=== PATIENT | female | born 1935 | race Caucasian/White ===

== ENCOUNTER → 2022-01-14 08:51 | Outpatient (CLI) | payer MEDICARE, OTHER, SELFPAY | PROVIDERS: Visit Provider Physician Assistant | DX: N39.0 Urinary tract infection, site not specified (principal); N94.9 Unspecified condition associated with female genital organs and menstrual cycle | CPT/HCPCS: 87086; 87210 ==

== ENCOUNTER → 2022-07-21 14:26 | Outpatient (CLI) | payer MEDICARE, OTHER, SELFPAY ==
--- NOTE | 2022-07-21 14:28 | DI.RAD.S_ITS ---
PROCEDURE: XR WRIST RT MIN 3V INDICATIONS: right wrist pain 6 wk suspect tenosynovitis TECHNIQUE: 4 views of the wrist were acquired. COMPARISON: None. FINDINGS: Bones: No fractures or dislocations. No suspicious bony lesions. Scaphoid view: Negative Soft tissues: No suspicious soft tissue calcifications. IMPRESSION: No acute fracture. No osseous lesion. If symptoms and/or clinical suspicion for pathology persist, further assessment with repeat, or advanced imaging (e.g., CT, MRI, or bone scan) may be helpful for further assessment. Dictated by: Eliot Velasquez M.D. on 07/21/2022 at 14:53 Approved by: Eliot Velasquez M.D. on 07/21/2022 at 14:53
== END ==
PROVIDERS: PCP Family Medicine; Referring Provider Student in an Organized Health Care Education/Training Program; Visit Provider Student in an Organized Health Care Education/Training Program
DX: M25.531 Pain in right wrist (principal); M65.4 Radial styloid tenosynovitis [de Quervain]
CPT/HCPCS: 73110

== ENCOUNTER → 2023-01-27 12:31 | Outpatient (CLI) | payer MEDICARE, OTHER, SELFPAY ==
[2023-01-27 14:05] LABS: Hematocrit 39.4 % (36-46); Hemoglobin 13.3 g/dL (12.0-16.0); Mean Corpuscular HGB Conc 33.7 % (30-36); Mean Corpuscular Hemoglobin 28.3 PG (26-34); Platelet Count 153 X10^3/uL (150-400); Red Blood Cell Count 4.68 X10^6/uL (4.0-5.2); Red Cell Distribution Width 14.6 % (11.6-14.8); White Blood Cell Count 6.9 X10^3/uL (4.5-11.0)
[2023-01-27 15:35] LABS: Alanine Aminotransferase 19 IU/L (<35); Albumin 4.4 g/dL (3.5-5.0); Albumin Globulin Ratio 1.2 (1.0-2.8); Alkaline Phosphatase 95 U/L (38-126); Aspartate Aminotransferase 30 IU/L (14-36); BUN Creatinine Ratio 17.9 (6-22); Bilirubin Total 0.6 mg/dL (0.2-1.3); Blood Urea Nitrogen 22 mg/dL (7-17); Calcium 9.2 mg/dL (8.4-10.2); Carbon Dioxide 30 mmol/L (22-32); Chloride 101 mmol/L (98-107); Cholesterol 272 mg/dL (140-199); Estimated Glomerular Filt Rate 43 mL/min (>60); Globulin 3.6 g/dL (1.7-4.1); Glucose 119 mg/dL (80-110); HDL Cholesterol 43 mg/dL (40-60); HEMOLYSIS < 15 (0-50); LDL Cholesterol Calculated 173 mg/dL (<100); Potassium 4.3 mmol/L (3.4-5.1); Sodium 139 mmol/L (137-145); Triglycerides 281 mg/dL (35-150)
[2023-01-27 18:14] LABS: TSH w/ Reflex to FT4 2.46 uIU/mL (0.47-4.68)
== END ==
PROVIDERS: PCP Internal Medicine; Referring Provider Internal Medicine; Visit Provider Internal Medicine
DX: E78.2 Mixed hyperlipidemia (principal); I10 Essential (primary) hypertension; M35.00 Sjogren syndrome, unspecified
CPT/HCPCS: 36415; 80053; 80061; 84443; 85027

== ENCOUNTER → 2023-09-10 10:13 | Outpatient (CLI) | payer MEDICARE, OTHER, SELFPAY ==
--- NOTE | 2023-09-10 10:17 | DI.RAD.S_ITS ---
PROCEDURE: XR FOOT LT MIN 3V INDICATIONS: PLANTER FASCITIS TECHNIQUE: 3 views of the foot were acquired. COMPARISON: None. FINDINGS: Bones: ORIF and syndesmosis is noted. No hardware fracture. Some radiolucency is noted along the syndesmotic screw which can be associated with hardware loosening. Calcaneal pitch is 18.9?. There is diffuse interphalangeal joint space narrowing. No acute fracture or dislocation. No calcaneal spurring. Soft tissues: No tibiotalar joint effusion. Achilles tendon appears normal. IMPRESSION: 1. Radiographic findings suspicious for loosening of the syndesmotic screw. 2. Normal calcaneal pitch. No calcaneal spurring. 3. Osteoarthritis of the forefoot. Dictated by: Stacy Mora M.D. on 09/21/2023 at 9:25 Approved by: Stacy Mora M.D. on 09/21/2023 at 9:27
== END ==
LOC: RAD 10:15
PROVIDERS: PCP Internal Medicine; Referring Provider Podiatrist Foot & Ankle Surgery; Visit Provider Podiatrist Foot & Ankle Surgery
DX: M72.2 Plantar fascial fibromatosis (principal); M19.072 Primary osteoarthritis, left ankle and foot
CPT/HCPCS: 73630

== ENCOUNTER → 2023-10-14 11:21 | Outpatient (CLI) | payer MEDICARE, OTHER, SELFPAY ==
--- NOTE | 2023-10-14 11:22 | DI.MRI.S_ITS ---
PROCEDURE: MR ANKLE LT WO CON INDICATIONS: Pain in left foot TECHNIQUE: Noncontrast sagittal T1 spin echo and T2 fast spin echo with fat saturation, axial proton density fast spin echo and T2 fast spin echo with fat saturation, coronal T1 spin echo and T2 fast spin echo with fat saturation through the ankle/hindfoot. COMPARISON: [facility], CR, XR FOOT LT MIN 3V, 09/10/2023, 10:19. FINDINGS: Image quality: Excellent Tendons: The flexor tendon is unremarkable. Somewhat limited evaluation of the peroneal tendon given adjacent metal artifact, otherwise unremarkable. The extensor, in the distal Achilles tendon is unremarkable. Ligaments: The anterior and posterior tibiofibular ligament is not well appreciated given associated metal artifact. The anterior talofibular ligament is likely intact. The posterior talofibular ligament is obscured by metal artifact. The calcaneal fibular ligament is intact. Prior sprain of the deep portion of the deltoid ligament. Sinus tarsi: No fibrosis. Plantar fascia: Thickening of the central cord with T2 intermediate density and surrounding soft tissue edema, present in plantar fasciitis. There is mild marrow edema of the plantar calcaneus at the plantar fascia insertion, likely reactive. Muscles: Unremarkable no fatty atrophy or muscle edema. Bones: Plate and screw fixation distal fibula with syndesmotic screw, creating artifacts and limits evaluation. Moderate degenerative changes of the navicular-cuneiform articulations with extensive subchondral cystic changes. No acute fracture. Other findings: No significant tibiotalar or posterior subtalar effusion. IMPRESSION: 1. Plate and screw fixation of the distal fibula with syndesmotic screw, creating artifact and limit evaluation. 2. Findings suggestive of plantar fasciitis with mild reactive marrow edema of the calcaneus. 3. Moderate degenerative changes of the navicular and cuneiform articulation. Dictated by: Brittni Deal M.D. on 10/14/2023 at 14:25 Approved by: Brittni Deal M.D. on 10/14/2023 at 14:34
== END ==
LOC: MRI 11:22
PROVIDERS: PCP Internal Medicine; Referring Provider Podiatrist; Visit Provider Podiatrist
DX: M79.672 Pain in left foot (principal)
CPT/HCPCS: 73721

== ENCOUNTER → 2023-11-03 12:04 | Outpatient (CLI) | payer MEDICARE, OTHER, SELFPAY ==
[2023-11-03 13:27] LABS: Aspartate Aminotransferase 59 IU/L (14-36); BUN Creatinine Ratio 21.7 (6-22); Blood Urea Nitrogen 31 mg/dL (7-17); Calcium 9.3 mg/dL (8.4-10.2); Carbon Dioxide 28 mmol/L (22-32); Chloride 108 mmol/L (98-107); Cholesterol 151 mg/dL (140-199); Estimated Glomerular Filt Rate 35 mL/min (>60); Glucose 120 mg/dL (80-110); HDL Cholesterol 63 mg/dL (40-60); HEMOLYSIS < 15 (0-50); LDL Cholesterol Calculated 58 mg/dL (<100); Potassium 4.9 mmol/L (3.4-5.1); Sodium 142 mmol/L (137-145); Triglycerides 149 mg/dL (35-150)
[2023-11-03 13:58] LABS: TSH w/ Reflex to FT4 2.89 uIU/mL (0.47-4.68)
== END ==
LOC: LAB 12:05
PROVIDERS: PCP Internal Medicine; Referring Provider Internal Medicine; Visit Provider Internal Medicine
DX: E78.2 Mixed hyperlipidemia (principal); I10 Essential (primary) hypertension; E03.9 Hypothyroidism, unspecified
CPT/HCPCS: 36415; 80048; 80061; 84443; 84450

== ENCOUNTER → 2024-07-27 16:46 | Outpatient (CLI) | payer MEDICARE, OTHER, SELFPAY ==
[2024-07-28 11:02] LABS: Hemoglobin 12.9 g/dL (12.0-16.0); Mean Corpuscular Hemoglobin 28.6 PG (26-34); Mean Corpuscular Volume 86.6 fL (80-100); Platelet Count 128 X10^3/uL (150-400); Red Cell Distribution Width 14.7 % (11.6-14.8)
[2024-07-28 11:14] LABS: Alanine Aminotransferase 26 IU/L (<35); Albumin 4.4 g/dL (3.5-5.0); Albumin Globulin Ratio 1.4 (1.0-2.8); Alkaline Phosphatase 94 U/L (38-126); Aspartate Aminotransferase 42 IU/L (14-36); BUN Creatinine Ratio 15.3 (6-22); Bilirubin Total 0.7 mg/dL (0.2-1.3); Blood Urea Nitrogen 18 mg/dL (7-17); Calcium 8.9 mg/dL (8.4-10.2); Carbon Dioxide 23 mmol/L (22-32); Chloride 104 mmol/L (98-107); Cholesterol 152 mg/dL (140-199); Estimated Glomerular Filt Rate 44 mL/min (>60); Globulin 3.1 g/dL (1.7-4.1); Glucose 161 mg/dL (80-110); HDL Cholesterol 51 mg/dL (40-60); HEMOLYSIS 32 (0-50); LDL Cholesterol Calculated 60 mg/dL (<100); Potassium 4.5 mmol/L (3.4-5.1); Sodium 134 mmol/L (137-145); Total Protein 7.5 g/dL (6.3-8.2); Triglycerides 203 mg/dL (35-150)
[2024-07-28 11:46] LABS: TSH w/ Reflex to FT4 3.41 uIU/mL (0.47-4.68)
== END ==
PROVIDERS: PCP Internal Medicine; Referring Provider Internal Medicine; Visit Provider Internal Medicine
DX: E03.9 Hypothyroidism, unspecified (principal); N18.32 Chronic kidney disease, stage 3b; E78.2 Mixed hyperlipidemia
CPT/HCPCS: 36415; 80053; 80061; 84443; 85027

== ENCOUNTER 2024-09-08 09:41 | Emergency (ER) | payer MEDICARE, OTHER, SELFPAY ==
[2024-09-08] VITALS (14 sets, daily range): BP systolic 147–177; BP diastolic 58–86; PULSE 83–127; RESP 9–21; TEMP 36.6; O2SAT 95–99; BMI 31.9
--- NOTE | 2024-09-08 09:43 | DI.RAD.S_ITS ---
PROCEDURE: XR CHEST 1V INDICATIONS: chest pain TECHNIQUE: One view of the chest was acquired. COMPARISON: None. FINDINGS: Surgical changes and devices: None. Lungs and pleura: Lungs are clear. No pleural effusions or pneumothorax. Mediastinum: Mediastinal contours appear normal. Heart size is normal. Bones and chest wall: No suspicious bony lesions. Overlying soft tissues appear unremarkable. IMPRESSION: No acute cardiopulmonary abnormality is seen. Dictated by: Jose Miguel Leroy M.D. on 09/08/2024 at 10:46 Approved by: Jose Miguel Leroy M.D. on 09/08/2024 at 10:46
--- NOTE | 2024-09-08 09:49 | EKG_ITS ---
[place] [id number] [place] [id number] Test Date: 2024-09-08 Pat Name: Vivi Holloway Department: [facility] Room: Gender: Female Key Sander: DENNY : 1935 Requested By: Order Number: [id number] Reading MD: Daron Hooks Measurements Intervals [place] Rate: 117 P: 52 [place]: 212 QRS: 12 QRSD: 76 T: 59 QT: 286 QTc: 398 Interpretive Statements Sinus tachycardia with 1st degree AV block Minimal voltage criteria for LVH, may be normal variant ( R in aVL ) Cannot rule out Inferior infarct , age undetermined Electronically Signed On 09-10-2024 18:28:35 PDT by Daron Hooks
--- NOTE | 2024-09-08 09:50 | EKG_ITS ---
[place] [id number] [place] [id number] Test Date: 2024-09-08 Pat Name: Vivi Holloway Department: [facility] Room: Gender: Female Director Of Convention Services: DENNY : 1935 Requested By: Order Number: [id number] Reading MD: Daron Hooks Measurements Intervals [place] Rate: 115 P: 52 [place]: 214 QRS: 8 QRSD: 78 T: 60 QT: 290 QTc: 401 Interpretive Statements Sinus tachycardia with 1st degree AV block Minimal voltage criteria for LVH, may be normal variant ( R in aVL ) Possible Inferior infarct , age undetermined Electronically Signed On 09-10-2024 18:28:36 PDT by Daron Hooks
--- NOTE | 2024-09-08 10:22 | ED_ITS ---
HPI - General Adult General Chief complaint: Shortness of Breath/Dyspnea Stated complaint: SOB, Sweaty Time Seen by Provider: 09/08/24 09:54 History of Present Illness HPI narrative: [age] year old woman with a history of hypertension, hyperlipidemia, hypothyroidism, Sjogren's disease reflux, major depression and chronic kidney disease who presents complaining of tachycardia. She states that she woke up this morning and noted that her heart rate was going fast she was slightly diaphoretic and not breath. She notes that this has been happening over the last week. The only change to medications has been weaning of and discontinuing 50 mg of nighttime amitriptyline. She reports no history of coronary artery disease or stroke. She has not been having chest pain does not describe lower extremity edema. No fevers or cough and has not been exposed to viral illnesses that she is aware of recently Related Data Home Medications Medication Instructions Recorded Confirmed cholecalciferol (vitamin D3) 50 50 mcg PO DAILY 01/27/23 11/03/23 mcg (2,000 unit) capsule cyanocobalamin (vitamin B-12) 1 tab PO DAILY 01/27/23 11/03/23 mineral oil 10 ml PO DAILY 01/27/23 11/03/23 polyethylene glycol 3350 17 17 g PO DAILY 01/27/23 07/27/24 gram/dose oral powder (Miralax) vit C-vit D-[id number]-bleqqioo capsule 1 cap PO DAILY 01/27/23 07/27/24 vitamin E [Vitamin E-400] 400 unit PO DAILY 01/27/23 07/27/24 melatonin 10 mg capsule 20 mg PO DAILY 07/27/24 07/27/24 Previous Rx's Medication Instructions Recorded estradiol 0.05 mg/24 hr semiweekly 1 patch transdermal 2XW #24 ea 01/27/23 transdermal patch linaclotide 72 mcg capsule 72 mcg PO DAILY #90 caps 04/27/23 (Linzess) rosuvastatin 10 mg tablet 10 mg PO DAILY #90 tabs 05/19/23 lubiprostone 8 mcg capsule 8 mcg PO BID #180 caps 05/27/23 amitriptyline 50 mg tablet 100 mg (2 x 50 mg) PO DAILY #180 11/03/23 tabs irbesartan 300 mg tablet 300 mg PO DAILY #90 tabs 03/01/24 levothyroxine 75 mcg tablet 75 mcg PO DAILY #90 tabs 03/01/24 metoprolol tartrate 100 mg tablet 100 mg PO BID #180 tabs 03/01/24 omeprazole 20 mg capsule,delayed 20 mg PO BID #180 caps 03/01/24 release Disabled Parking permit #1 ea 05/18/24 tramadol 50 mg tablet 50 mg PO BID PRN pain #90 tabs 08/05/24 Allergies Allergy/AdvReac Type Severity Reaction Status Date / Time No Known Drug Allergies Allergy Verified 07/27/24 15:51 Review of Systems Review of Systems Narrative: Pertinent positive and negative findings as per HPI Patient History Medical History (Updated 09/08/24 @ 14:37 by Jasmin Nicholas MD) Stage 3b chronic kidney disease (CKD) Do not resuscitate Venous (peripheral) insufficiency Depression, major, recurrent Obesity (BMI 30.0-34.9) Slow transit constipation Chronic low back pain Insomnia Generalized anxiety disorder GERD without esophagitis Obstructive sleep apnea Primary osteoarthritis involving multiple joints Acquired hypothyroidism Mixed hyperlipidemia Essential hypertension History of varicose veins Degenerative disc disease Granuloma annulare Psoriasis Sjogren's syndrome Restless leg syndrome (~1983) Osteopenia Fractures Fibromyalgia (~1964) Measles (~1940) Chicken pox Vertigo (~2015) Tinnitus (~2014) Hearing loss (~2014) Cataracts, bilateral (~1999) Painful menstrual periods (~1948) Ovarian cyst (~1964) Endometriosis (~1967) Back problem (~1959) Hepatitis C (~2017) Surgical History Fracture of distal end of tibia (~2021) S/P arthroscopic surgery of left knee (~2018) Fracture of left clavicle (~2016) History of eyelid surgery (~2007) History of cataract removal with insertion of prosthetic lens (~2006) Broken ankle (~1999) History of arthroscopic knee surgery History of ankle surgery (~1989) Spinal stenosis (~1984) History of laminectomy (~1975) History of hemorrhoidectomy (~1965) History of hysterectomy (~1964) History of removal of ovarian cyst (~1959) History of tonsillectomy (~1946) Anesthesia Family History Father Congestive heart failure Hypertension History of back surgery History of varicose vein ligation History of appendectomy History of hemorrhoidectomy History of cataract surgery Sleep apnea Heavy smoker Mother Cancer Hypertension History of fractured vertebra Arthritis Hodgkin's disease Brother Arthritis of back Heart transplant recipient Hypertension Coronary artery disease History of back surgery Heavy smoker Sister History of heart disease Hypertension Osteoarthritis History of back surgery History of hip replacement Broken shoulder History of varicose vein ligation Congestive heart failure Grandfather Blood infection Grandmother Stroke Son Osteoarthritis History of back surgery History of varicose vein ligation Social History details: 2020, son lives locally, lived in [place] until 05/2022 Smoking Status: Never smoker Smoking Status: Never smoker Exam Initial Vital Signs Initial Vital Signs: Vital Signs Pulse Rate 127 H 09/08/24 09:46 Pulse Oximetry 96 09/08/24 09:46 General: Older appearing but in no acute distress. Able to give a complete and coherent history. Well-nourished well-developed HEENT: Moist mucous membranes, normal sclera with reactive pupils, Neck: No JVD, supple Respiratory: Lungs are clear to auscultation, no wheezing no rales no rhonchi. Full and symmetrical air movement Cardiac: Tachycardic but regular without murmurs Abdomen: Soft, nontender, good bowel tones, no flank pain Skin: Mildly diaphoretic, no significant rashes to suggest infection Neurologic: Grossly neurologically intact with no obvious asymmetries or abnormalities Extremities: No trauma, well perfused, no lower extremity edema Psych: Cooperative, appropriate insight and affect Course Orders Ordered: ED Orders 09/08/24 09:43 XR chest 1V Stat EKG-12 Lead Stat 09/08/24 10:15 Complete Blood Count AUTO DIFF Stat Comprehensive Metabolic Panel Stat D Dimer Stat Lipase Stat Magnesium Stat NT-proBNP (BNP-Adult 18+) Stat PTT Partial Thromboplastin Miguelito Stat Prothrombin Time INR Stat Troponin & CK Cardiac Panel Stat 09/08/24 10:16 TSH w/ Reflex to FT4 Stat 09/08/24 12:15 Trop I [Troponin I] Stat 09/08/24 12:33 CT angio chest PE protocol Stat Discontinued Medications Aspirin (Aspirin 81 Mg Chew Tab) 324 mg PO NOW ONE Stop: 09/08/24 09:44 Last Admin: 09/08/24 10:34 Dose: 324 mg Documented By: KW Sodium Chloride (Normal Saline 0.9%) 1,000 mls @ 1,000 mls/hr IV BOLUS ONE Stop: 09/08/24 12:46 Last Infusion: 09/08/24 12:48 Dose: Infused Documented By: Admin: 09/08/24 11:58 Dose: 1,000 mls/hr Documented By: EMRE Vital Signs Vital signs: Vital Signs - 8 hr 09/08/24 09:46 09/08/24 09:47 09/08/24 09:47 Temperature Pulse Rate 127 H 122 H Respiratory Rate Blood Pressure 166/85 H Pulse Oximetry 96 96 Oxygen Delivery Method 09/08/24 09:55 09/08/24 10:00 09/08/24 10:00 Temperature 97.8 F Pulse Rate 120 H 120 H Respiratory Rate 13 13 Blood Pressure 166/85 H 167/86 H Pulse Oximetry 96 96 Oxygen Delivery Method Room Air 09/08/24 10:30 09/08/24 10:30 09/08/24 11:00 Temperature Pulse Rate 110 H Respiratory Rate 19 Blood Pressure 152/67 H 152/70 H Pulse Oximetry 98 Oxygen Delivery Method 09/08/24 11:00 09/08/24 11:30 09/08/24 11:30 Temperature Pulse Rate 99 H 97 H Respiratory Rate 10 L 10 L Blood Pressure 147/67 H Pulse Oximetry 99 97 Oxygen Delivery Method Room Air 09/08/24 12:00 09/08/24 12:00 09/08/24 12:30 Temperature Pulse Rate 91 H Respiratory Rate 9 L Blood Pressure 161/76 H 177/69 H Pulse Oximetry 98 Oxygen Delivery Method 09/08/24 12:30 09/08/24 12:55 09/08/24 12:55 Temperature Pulse Rate 88 91 H Respiratory Rate 12 21 Blood Pressure 174/77 H Pulse Oximetry 98 95 Oxygen Delivery Method 09/08/24 13:00 09/08/24 13:00 09/08/24 13:30 Temperature Pulse Rate 89 Respiratory Rate Blood Pressure 160/58 H 166/74 H Pulse Oximetry 98 Oxygen Delivery Method 09/08/24 13:30 09/08/24 14:00 09/08/24 14:00 Temperature Pulse Rate 83 84 Respiratory Rate Blood Pressure 164/72 H Pulse Oximetry 97 98 Oxygen Delivery Method Medical Decision Making Lab Data 09/08/24 10:15 09/08/24 10:15 Labs: Lab Results 03/13/25 03/13/25 03/13/25 Range/Units 10:15 10:16 12:15 WBC 8.7 (4.5-11.0) X10^3/uL RBC 5.20 (4.0-5.2) X10^6/uL Hgb 14.7 (12.0-16.0) g/dL Hct 44.3 (36-46) % MCV 85.2 (80-100) fL MCH 28.3 (26-34) PG MCHC 33.3 (30-36) % RDW 14.6 (11.6-14.8) % Plt Count 120 L (150-400) X10^3/uL Neut % (Auto) Not Reportable Lymph % (Auto) Not Reportable [place] % (Auto) Not Reportable Eos % (Auto) Not Reportable Baso % (Auto) Not Reportable Lymph # (Auto) Not Reportable [place] # (Auto) Not Reportable Baso # (Auto) Not Reportable Total Counted 100 Seg Neutrophils % 59.0 (38-70) % Band Neutrophils % 3.0 (3-7) % Lymphocytes % (Manual) 32.0 (25-45) % Monocytes % (Manual) 6.0 (2-11) % Neutrophils # (Manual) 5394 (5454-1241) /uL RBC Morphology Normal morphology PT 10.7 (9.4-12.5) SECONDS INR 0.9 (0.9-1.3) APTT 19 L (25.1-36.5) SECONDS D-Dimer 1455 H (<500) ng/ml Sodium 137 (137-145) mmol/L Potassium 4.8 (3.4-5.1) mmol/L Chloride 104 (98-107) mmol/L Carbon Dioxide 19 L (22-32) mmol/L BUN 26 H (7-17) mg/dL Creatinine 1.19 H (0.52-1.04) mg/dL Estimated GFR 44 L (>60) mL/min BUN/Creatinine Ratio 21.8 (6-22) Glucose 272 H (80-110) mg/dL Calcium 9.3 (8.4-10.2) mg/dL Magnesium 2.0 (1.6-2.3) mg/dL Total Bilirubin 1.7 H (0.2-1.3) mg/dL AST 76 H (14-36) IU/L ALT 29 (<35) IU/L Alkaline Phosphatase 79 (38-126) U/L Total Creatine Kinase 53 (30-135) U/L Troponin I 0.015 < 0.012 (0.01-0.034) ng/mL NT-Pro-B Natriuret Pep 283 (<450) pg/mL Total Protein 8.7 H (6.3-8.2) g/dL Albumin 4.7 (3.5-5.0) g/dL Globulin 4.0 (1.7-4.1) g/dL Albumin/Globulin Ratio 1.2 (1.0-2.8) Lipase 370 H (23-300) U/L TSH 0.97 (0.47-4.68) uIU/mL Imaging Data CT scan - chest: Radiologist's Impression: PROCEDURE: CT ANGIO CHEST PE PROTOCOL INDICATIONS: tachy, dyspnea, elevated d dimer TECHNIQUE: After the administration of intravenous contrast, 2 mm thick sections acquired from the pulmonary apices to the posterior costophrenic angles. 3-dimensional maximum intensity projection (MIP) coronal and sagittal reformats were then acquired through the thorax. For radiation dose reduction, the following was used: automated exposure control, adjustment of mA and/or kV according to patient size. COMPARISON: None. FINDINGS: Image quality: Diagnostic. Pulmonary arteries: Pulmonary arteries are normal in size, and demonstrate no intraluminal filling defects to suggest central pulmonary embolism. Lower Neck: No enlarged lymph nodes. Thyroid: No thyroid nodules which require sonographic follow up, per consensus guidelines. Axillae: No enlarged lymph nodes. Chest Wall: Unremarkable. Bones: Unremarkable. Lungs and Pleura: No pneumothorax or pleural effusions. Linear scarring/atelectasis in posterior medial aspect of bilateral lower lobes are seen. No consolidation or suspicious nodules. Heart: Heart size is enlarged. No pericardial effusion. Thoracic Vessels: No aortic aneurysm. Moderate 2 vessel coronary artery atherosclerotic calcifications are seen. Mediastinum and [place]: No enlarged lymph nodes. Esophagus: No wall thickening. No significant hiatal hernia. Upper Abdomen: Visualized upper abdomen solid organs and bowel loops appear normal. IMPRESSION: 1. No pulmonary embolus. No thoracic aortic aneurysm or gross dissection. 2. Linear scarring/atelectasis in posterior medial aspect of bilateral lower lobes. No focal infiltrate, pleural effusion or pneumothorax. 3. Cardiomegaly, no pericardial effusion. Moderate atherosclerotic calcifications in coronary arteries. No mediastinal or hilar lymphadenopathy. Dictated by: Andrea Jaimes M.D. on 09/08/2024 at 13:35 MDM Narrative Medical decision making narrative: CC: Tachycardia Complicating co-morbidities: Hypertension, hyperlipidemia, Sjogren syndrome, hypothyroidism Data collected from: patient, son Medical records reviewed: Primary care notes reviewed from July 27, 2024 Differential considered: Dehydration, AFib/flutter, fever, medication side effect, pulmonary embolism, viral syndrome Exam documented above, pertinent findings include: Patient is tachycardic, sinus, mild diaphoresis of the lower extremities only and exam is otherwise unremarkable Lab Test results independently reviewed as above. Pertinent findings: CBC is unremarkable, no signs of acute anemia or infection. Platelet count is at 120 which is close to her baseline Chemistries appear to be close to baseline, creatinine at 1.19. Sodium and potassium appropriate. Liver studies show slightly elevated bilirubin at 1.7, AST of 76 ALT and alk- phos are normal Troponin is undetected BNP is not elevated Lipase is minimally elevated at 370, clinically she does not have any left upper quadrant abdominal pain Independently reviewed EKG: Sinus tachycardia at 117, LVH no acute ischemic change Imaging studies independently reviewed: Chest x-ray is unremarkable CT angiogram of the chest does not show PE or other life-threatening abnormalities Treatments: 1 L of fluid Discussion: 89-year-old woman awoke this morning with sinus tachycardia workup suggest that she was slightly dehydrated she is responded nicely to fluid resuscitation. There was no evidence of infection, acute blood loss, worsening renal failure, cardiac syndrome, pulmonary emboli or alternate explanation that would require hospitalization tonight. She is feeling much better and heart rate is in the mid 80s currently. There was no indication for hospitalization and she will be discharged Discharge Plan Departure Patient Disposition: Home Clinical Impression: Sinus tachycardia, Dehydration Instructions: DI for Dehydration -- Adult Activity Restrictions/Additional Instructions: Thank you for coming in today I did not find a life-threatening explanation for your rapid heart rate this morning. You are in a sinus rhythm, there was nothing life-threatening. Your rate responded nicely to fluid suggesting that you are mildly dehydrated. I see no signs of blood clots in your lung, infection, collapsed lung, viral syndrome, heart attack or other reason that you need to stay in the hospital. I would recommend a large glass of water 1st thing in the morning every day If you find that you are getting worse or develop any new symptoms, please feel free to return to the emergency department for further evaluation. Prescriptions: No Action Linzess 72 mcg capsule 72 mcg PO DAILY Qty: 90 3RF rosuvastatin 10 mg tablet 10 mg PO DAILY Qty: 90 3RF lubiprostone 8 mcg capsule 8 mcg PO BID Qty: 180 3RF irbesartan 300 mg tablet 300 mg PO DAILY Qty: 90 3RF levothyroxine 75 mcg tablet 75 mcg PO DAILY Qty: 90 3RF metoprolol tartrate 100 mg tablet 100 mg PO BID Qty: 180 3RF omeprazole 20 mg capsule,delayed release(DR/EC) 20 mg PO BID Qty: 180 3RF (DME) Disabled Parking permit See Rx Instructions .Route .MEDSUPPLY Qty: 1 0RF Rx Instructions: See accompanying application for disabled parking permit. tramadol 50 mg tablet 50 mg PO BID PRN (Reason: pain) Qty: 90 3RF vitamin E [Vitamin E-400] 400 unit PO DAILY cholecalciferol (vitamin D3) 50 mcg (2,000 unit) capsule 50 mcg PO DAILY cyanocobalamin (vitamin B-12) 1 tab PO DAILY vit C-vit C-nkhcxx-aftdmczg Capsule 1 cap PO DAILY polyethylene glycol 3350 [Miralax] 17 gram/dose powder 17 g PO DAILY mineral oil Oil 10 ml PO DAILY estradiol 0.05 mg/24 hr patch semiweekly 1 patch transdermal 2XW Qty: 24 3RF amitriptyline 50 mg tablet 100 mg PO DAILY Qty: 180 3RF melatonin 10 mg capsule 20 mg PO DAILY Referrals: Fred Benitez MD [Primary Care Provider] - Stand Alone Forms: Patient Portal/API/Survey
[2024-09-08] MEDS: ASPIRIN 81 MG CHEW TAB 324 MG PO (10:34)
[2024-09-08 10:41] LABS: Add Manual Diff / Slide Review YES; Hematocrit 44.3 % (36-46); Hemoglobin 14.7 g/dL (12.0-16.0); INR 0.9 (0.9-1.3); Mean Corpuscular HGB Conc 33.3 % (30-36); Mean Corpuscular Hemoglobin 28.3 PG (26-34); Mean Corpuscular Volume 85.2 fL (80-100); Platelet Count 120 X10^3/uL (150-400); Prothrombin Time 10.7 SECONDS (9.4-12.5); Red Cell Distribution Width 14.6 % (11.6-14.8); White Blood Cell Count 8.7 X10^3/uL (4.5-11.0)
[2024-09-08 10:44] LABS: PTT Partial Thromboplastin Tim 19 SECONDS (25.1-36.5)
[2024-09-08 11:01] LABS: Alanine Aminotransferase 29 IU/L (<35); Albumin 4.7 g/dL (3.5-5.0); Albumin Globulin Ratio 1.2 (1.0-2.8); Alkaline Phosphatase 79 U/L (38-126); Aspartate Aminotransferase 76 IU/L (14-36); BUN Creatinine Ratio 21.8 (6-22); Bilirubin Total 1.7 mg/dL (0.2-1.3); Blood Urea Nitrogen 26 mg/dL (7-17); Calcium 9.3 mg/dL (8.4-10.2); Carbon Dioxide 19 mmol/L (22-32); Chloride 104 mmol/L (98-107); Creatine Kinase 53 U/L (30-135); Estimated Glomerular Filt Rate 44 mL/min (>60); Glucose 272 mg/dL (80-110); Lipase 370 U/L (23-300); Potassium 4.8 mmol/L (3.4-5.1); Sodium 137 mmol/L (137-145); Total Protein 8.7 g/dL (6.3-8.2)
[2024-09-08 11:07] LABS: HEMOLYSIS 245 (0-50)
[2024-09-08 11:12] LABS: D Dimer 1455 ng/ml (<500); NT-proBNP (BNP-Adult 18+) 283 pg/mL (<450); Troponin I 0.015 ng/mL (0.01-0.034)
[2024-09-08] MEDS: SODIUM CHLORIDE 0.9% 1,000 ML 1000 ML IV (11:58)
--- NOTE | 2024-09-08 12:33 | DI.CT.S_ITS ---
PROCEDURE: CT ANGIO CHEST PE PROTOCOL INDICATIONS: tachy, dyspnea, elevated d dimer TECHNIQUE: After the administration of intravenous contrast, 2 mm thick sections acquired from the pulmonary apices to the posterior costophrenic angles. 3-dimensional maximum intensity projection (MIP) coronal and sagittal reformats were then acquired through the thorax. For radiation dose reduction, the following was used: automated exposure control, adjustment of mA and/or kV according to patient size. COMPARISON: None. FINDINGS: Image quality: Diagnostic. Pulmonary arteries: Pulmonary arteries are normal in size, and demonstrate no intraluminal filling defects to suggest central pulmonary embolism. Lower Neck: No enlarged lymph nodes. Thyroid: No thyroid nodules which require sonographic follow up, per consensus guidelines. Axillae: No enlarged lymph nodes. Chest Wall: Unremarkable. Bones: Unremarkable. Lungs and Pleura: No pneumothorax or pleural effusions. Linear scarring/atelectasis in posterior medial aspect of bilateral lower lobes are seen. No consolidation or suspicious nodules. Heart: Heart size is enlarged. No pericardial effusion. Thoracic Vessels: No aortic aneurysm. Moderate 2 vessel coronary artery atherosclerotic calcifications are seen. Mediastinum and [place]: No enlarged lymph nodes. Esophagus: No wall thickening. No significant hiatal hernia. Upper Abdomen: Visualized upper abdomen solid organs and bowel loops appear normal. IMPRESSION: 1. No pulmonary embolus. No thoracic aortic aneurysm or gross dissection. 2. Linear scarring/atelectasis in posterior medial aspect of bilateral lower lobes. No focal infiltrate, pleural effusion or pneumothorax. 3. Cardiomegaly, no pericardial effusion. Moderate atherosclerotic calcifications in coronary arteries. No mediastinal or hilar lymphadenopathy. Dictated by: Andrea Jaimes M.D. on 09/08/2024 at 13:35 Approved by: Andrea Jaimes M.D. on 09/08/2024 at 13:38
[2024-09-08 12:46] LABS: TSH w/ Reflex to FT4 0.97 uIU/mL (0.47-4.68)
[2024-09-08 13:06] LABS: Troponin I < 0.012 ng/mL (0.01-0.034)
[2024-09-08 13:20] LABS: Neutrophils Absolute Manual 5394 /uL (3000-5900); RBC Morphology Normal Morphology; Total Cells Counted 100
== END 2024-09-08 14:52 | disposition home or self-care (01) ==
PROVIDERS: Emergency Provider Emergency Medicine; PCP Internal Medicine
DX: R00.0 Tachycardia, unspecified (principal); E86.0 Dehydration
CPT/HCPCS: 36415; 71045; 71275; 80053; 82550; 83690; 83735; 83880; 84443; 84484; 85007; 85025; 85379; 85610; 85730; 93005; 96360; 99284; Q9967

== ENCOUNTER → 2025-01-30 10:56 | Outpatient (CLI) | payer MEDICARE, OTHER, SELFPAY ==
[2025-01-30 11:53] LABS: Hematocrit 38.9 % (36-46); Hemoglobin 12.9 g/dL (12.0-16.0); Mean Corpuscular HGB Conc 33.2 % (30-36); Mean Corpuscular Hemoglobin 28.0 PG (26-34); Mean Corpuscular Volume 84.5 fL (80-100); Platelet Count 138 X10^3/uL (150-400)
[2025-01-30 12:02] LABS: Hemoglobin A1C% w Est Avg Glu 6.5 % (4.0-6.0)
[2025-01-30 12:23] LABS: Alanine Aminotransferase 16 IU/L (<35); Albumin 4.5 g/dL (3.5-5.0); Albumin Globulin Ratio 1.2 (1.0-2.8); Alkaline Phosphatase 111 U/L (38-126); Blood Urea Nitrogen 28 mg/dL (7-17); Calcium 9.3 mg/dL (8.4-10.2); Carbon Dioxide 26 mmol/L (22-32); Chloride 101 mmol/L (98-107); Estimated Glomerular Filt Rate 36 mL/min (>60); Globulin 3.8 g/dL (1.7-4.1); Glucose 135 mg/dL (70-99); HEMOLYSIS < 15 (0-50); Potassium 4.2 mmol/L (3.4-5.1); Sodium 137 mmol/L (137-145); Total Protein 8.3 g/dL (6.3-8.2)
[2025-01-30 12:56] LABS: TSH w/ Reflex to FT4 0.48 uIU/mL (0.47-4.68)
[2025-01-30 13:14] LABS: Vitamin B12 Reflex MMA if <400 > 1000 pg/mL (239-931)
[2025-02-01 15:10] LABS: Albumin 3.6 g/dL (2.9-4.4); Alpha-1-Globulin 0.2 g/dL (0.0-0.4); Alpha-2-Globulin 0.8 g/dL (0.4-1.0); Gamma Globulin 1.6 g/dL (0.4-1.8)
== END ==
PROVIDERS: PCP Internal Medicine; Referring Provider Internal Medicine; Visit Provider Internal Medicine
DX: E53.8 Deficiency of other specified B group vitamins (principal); R73.01 Impaired fasting glucose; E03.9 Hypothyroidism, unspecified; R77.9 Abnormality of plasma protein, unspecified
CPT/HCPCS: 36415; 80053; 82607; 83036; 84155; 84165; 84443; 85027

== ENCOUNTER → 2025-05-16 10:01 | Outpatient (CLI) | payer MEDICARE, OTHER, SELFPAY ==
--- NOTE | 2025-05-16 10:03 | DI.RAD.S_ITS ---
PROCEDURE: XR CHEST 2V INDICATIONS: dyspnea TECHNIQUE: 2 views of the chest were acquired. COMPARISON: [facility], CT, CT ANGIO CHEST PE PROTOCOL, 09/08/2024, 12:49. [facility], CR, XR CHEST 1V, 09/08/2024, 10:07. FINDINGS: Surgical changes and devices: None. Lungs and pleura: Left lower lobe hazy opacity. No silhouetting. No pleural effusions or pneumothorax. Mediastinum: Mediastinal contours are unchanged. Heart size is normal. Bones and chest wall: No suspicious bony abnormalities. Soft tissues appear unremarkable. IMPRESSION: Left lower lobe hazy opacity. Most consistent with atelectasis. Dictated by: Skyla Moore RRRolo Interpreted: Guillermo Finn MD on 05/16/2025 at 14:37 Transcribed by: KATHERIN on 05/16/2025 at 14:39 Approved by: Guillermo Finn M.D. on 05/16/2025 at 17:06
--- NOTE | 2025-05-16 10:28 | EKG_ITS ---
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
[2025-05-16 10:44] LABS: Hematocrit 33.2 % (36-46); Hemoglobin 11.2 g/dL (12.0-16.0); Mean Corpuscular HGB Conc 33.7 % (30-36); Mean Corpuscular Hemoglobin 28.5 PG (26-34); Mean Corpuscular Volume 84.7 fL (80-100); Platelet Count 164 X10^3/uL (150-400)
[2025-05-16 10:55] LABS: Hemoglobin A1C% w Est Avg Glu 6.5 % (4.0-6.0)
[2025-05-16 11:04] LABS: Alanine Aminotransferase 32 IU/L (<35); Albumin 3.8 g/dL (3.5-5.0); Albumin Globulin Ratio 1.2 (1.0-2.8); Alkaline Phosphatase 151 U/L (38-126); Blood Urea Nitrogen 27 mg/dL (7-17); Calcium 9.3 mg/dL (8.4-10.2); Carbon Dioxide 25 mmol/L (22-32); Chloride 103 mmol/L (98-107); Cholesterol 122 mg/dL (140-199); Estimated Glomerular Filt Rate 37 mL/min (>60); Globulin 3.2 g/dL (1.7-4.1); Glucose 152 mg/dL (70-99); HDL Cholesterol 39 mg/dL (40-60); HEMOLYSIS < 15 (0-50); Potassium 4.6 mmol/L (3.4-5.1); Sodium 135 mmol/L (137-145); Total Protein 7.0 g/dL (6.3-8.2); Triglycerides 169 mg/dL (35-150)
[2025-05-16 11:35] LABS: TSH w/ Reflex to FT4 6.00 uIU/mL (0.47-4.68)
[2025-05-16 12:03] LABS: Free T4, Direct Thyroxine 1.21 ng/dL (0.78-2.19)
[2025-05-16 13:47] LABS: HEMOLYSIS 16 (0-50); Iron 76 ug/dL (37-170)
[2025-05-16 13:57] LABS: Percent Iron Saturation 27 % (15-50); Total Iron Binding Capacity 280 ug/dL (265-497); Transferrin 228 mg/dL (206-381)
[2025-05-16 14:13] LABS: Ferritin 161 ng/mL (11-264)
== END ==
PROVIDERS: PCP Internal Medicine; Referring Provider Internal Medicine; Visit Provider Internal Medicine
DX: R06.02 Shortness of breath (principal); E11.69 Type 2 diabetes mellitus with other specified complication; E03.9 Hypothyroidism, unspecified; I10 Essential (primary) hypertension; E78.5 Hyperlipidemia, unspecified; N18.32 Chronic kidney disease, stage 3b; E78.2 Mixed hyperlipidemia; D64.9 Anemia, unspecified
CPT/HCPCS: 36415; 71046; 80053; 80061; 82728; 83036; 83540; 83550; 84439; 84443; 85027; 93005

== ENCOUNTER 2025-05-19 21:48 | Emergency (ER) | payer MEDICARE, OTHER, SELFPAY ==
[2025-05-19 22:10] VITALS: BP 141/89; PULSE 54; RESP 17; TEMP 36.6; O2SAT 98; BMI 31.1
--- NOTE | 2025-05-19 22:13 | DI.RAD.S_ITS ---
PROCEDURE: XR RIBS RT MIN 3V W CXR 1V INDICATIONS: fall TECHNIQUE: 2 views of the ribs were acquired, along with a single view chest. COMPARISON: None. FINDINGS: Surgical changes and devices: None. Bones and chest wall: No fractures or dislocations. No suspicious bony lesions. Overlying soft tissues appear unremarkable. Lungs and pleura: No pleural effusions or pneumothorax. Lungs appear clear. Mediastinum: Mediastinal contours appear normal. Heart size is normal. IMPRESSION: No displaced rib fracture or pneumothorax. Approved by: Nuvia Herr M.D.,Ph.D. on 05/19/2025 at 23:06
--- NOTE | 2025-05-19 22:13 | EKG_ITS ---
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
[2025-05-19 23:24] LABS: Alanine Aminotransferase 25 IU/L (<35); Albumin 4.1 g/dL (3.5-5.0); Albumin Globulin Ratio 1.1 (1.0-2.8); Alkaline Phosphatase 144 U/L (38-126); Blood Urea Nitrogen 26 mg/dL (7-17); Calcium 9.9 mg/dL (8.4-10.2); Carbon Dioxide 27 mmol/L (22-32); Chloride 103 mmol/L (98-107); Estimated Glomerular Filt Rate 38 mL/min (>60); Globulin 3.6 g/dL (1.7-4.1); Glucose 133 mg/dL (70-99); HEMOLYSIS 16 (0-50); Potassium 4.6 mmol/L (3.4-5.1); Sodium 137 mmol/L (137-145); Total Protein 7.7 g/dL (6.3-8.2)
[2025-05-19 23:36] LABS: NT-proBNP (BNP-Adult 18+) 973 pg/mL (<450); Troponin I < 0.012 ng/mL (0.01-0.034)
[2025-05-19 23:40] LABS: Add Manual Diff / Slide Review NO; Hematocrit 35.5 % (36-46); Hemoglobin 11.7 g/dL (12.0-16.0); Lymphocytes Absolute Auto 1300 /uL (1100-4500); Mean Corpuscular HGB Conc 33.0 % (30-36); Mean Corpuscular Hemoglobin 27.9 PG (26-34); Mean Corpuscular Volume 84.5 fL (80-100); Platelet Count 151 X10^3/uL (150-400)
[2025-05-19 23:47] LABS: INR 1.1 (0.9-1.3); Prothrombin Time 12.1 SECONDS (9.4-12.5)
[2025-05-19 23:50] LABS: Lactate (Lactic Acid) 1.4 mmol/L (0.7-2.1)
--- NOTE | 2025-05-20 00:35 | ED.SOB ---
HPI - SOB/Dyspnea General Chief Complaint: Shortness of Breath/Dyspnea Stated Complaint: SOB, right rib cage pain front to back, malaise Time Seen by Provider: 05/20/25 00:35 Source: patient Mode of arrival: Wheelchair History of Present Illness HPI Narrative: 89-year-old female past medical history of diabetes type 2, CKD, hypothyroidism, hyperlipidemia, hypertension, comes into the ED from home for evaluation of multiple complaints. Patient states that they have been feeling short of breath for the past week, states that she has been also having some mild mid back pain this all started on Thursday when she had a fall, she did follow up with her primary care doctor several days ago and had a negative workup but due to persistent symptoms decided come into the ED for further evaluation treatment. She denies any actual chest pain did not on any blood thinners denies any other symptoms such as headache visual disturbance fever chills nausea vomiting abdominal pain or any other GI/ symptoms at this time. Related Data Home Medications ?Medication ?Instructions ?Recorded ?Confirmed cholecalciferol (vitamin D3) 50 50 mcg PO DAILY 01/27/23 05/16/25 mcg (2,000 unit) capsule cyanocobalamin (vitamin B-12) 1 tab PO DAILY 01/27/23 05/16/25 mineral oil 10 ml PO DAILY 01/27/23 05/16/25 vit C-vit I-kdretk-ywdsqdjy capsule 1 cap PO DAILY 01/27/23 05/16/25 vitamin E [Vitamin E-400] 400 unit PO DAILY 01/27/23 05/16/25 melatonin 10 mg capsule 20 mg PO DAILY 07/27/24 05/16/25 Previous Rx's ?Medication ?Instructions ?Recorded Disabled Parking permit #1 ea 05/18/24 tramadol 50 mg tablet 50 mg PO BID PRN pain #90 tabs 08/05/24 estradiol 0.05 mg/24 hr semiweekly 1 patch transdermal 2XW #24 ea 01/30/25 transdermal patch furosemide 20 mg tablet 40 mg (2 x 20 mg) PO DAILY #180 01/30/25 tabs metoprolol tartrate 100 mg tablet 100 mg PO BID #180 tabs 01/30/25 rosuvastatin 10 mg tablet 10 mg PO DAILY #90 tabs 01/30/25 levothyroxine 75 mcg capsule 75 mcg PO DAILY #90 caps 02/07/25 irbesartan 300 mg tablet 300 mg PO DAILY #90 tabs 03/29/25 amitriptyline 25 mg tablet 25 mg PO BEDTIME taper #30 tabs 05/18/25 amitriptyline 50 mg tablet 50 mg PO BEDTIME #30 tabs 05/18/25 escitalopram oxalate 5 mg tablet See Rx Instructions .Route 05/18/25 .COMPLEX #90 tabs Allergies Allergy/AdvReac Type Severity Reaction Status Date / Time No Known Drug Allergies Allergy Verified 05/19/25 22:10 Review of Systems Review of Systems Narrative: General: Denies fever, chills, weight loss HEENT: Denies headache, eye drainage, eye irritation, head trauma, sore throat, voice change Cardiovascular: Denies any chest pain, palpitations, tachycardia Respiratory: Positive shortness of breath, denies cough, wheeze, stridor GI/: Denies any abdominal pain, nausea, vomiting, diarrhea, bright red blood per rectum, melanotic stools, urinary frequency, urinary retention, dysuria, hematuria MSK: Positive right rib pain Skin: Denies any rashes, lesions, discoloration Neuro: Denies any headache, lightheadedness, dizziness, fainting, weakness Psych: Denies SI/HI Patient History Medical History (Updated 05/20/25 @ 02:43 by Daron Crane DO) DM type 2 with diabetic dyslipidemia Polyneuropathy, unspecified Menopausal syndrome Mild neurocognitive disorder Stage 3b chronic kidney disease (CKD) Do not resuscitate Venous (peripheral) insufficiency Depression, major, recurrent Obesity (BMI 30.0-34.9) Slow transit constipation Chronic low back pain Insomnia Generalized anxiety disorder GERD without esophagitis Obstructive sleep apnea Primary osteoarthritis involving multiple joints Acquired hypothyroidism Mixed hyperlipidemia Essential hypertension History of varicose veins Degenerative disc disease Granuloma annulare Psoriasis Sjogren's syndrome Restless leg syndrome (~1983) Osteopenia Fractures Fibromyalgia (~1964) Measles (~1940) Chicken pox Vertigo (~2015) Tinnitus (~2014) Hearing loss (~2014) Cataracts, bilateral (~1999) Painful menstrual periods (~1948) Ovarian cyst (~1964) Endometriosis (~1967) Back problem (~1959) Hepatitis C (~2018) Surgical History Fracture of distal end of tibia (~2021) S/P arthroscopic surgery of left knee (~2018) Fracture of left clavicle (~2016) History of eyelid surgery (~2007) History of cataract removal with insertion of prosthetic lens (~2006) Broken ankle (~1999) History of arthroscopic knee surgery History of ankle surgery (~1989) Spinal stenosis (~1984) History of laminectomy (~1975) History of hemorrhoidectomy (~1965) History of hysterectomy (~1964) History of removal of ovarian cyst (~1959) History of tonsillectomy (~1946) Anesthesia Family History Father Congestive heart failure Hypertension History of back surgery History of varicose vein ligation History of appendectomy History of hemorrhoidectomy History of cataract surgery Sleep apnea Heavy smoker Mother Cancer Hypertension History of fractured vertebra Arthritis Hodgkin's disease Brother Arthritis of back Heart transplant recipient Hypertension Coronary artery disease History of back surgery Heavy smoker Sister History of heart disease Hypertension Osteoarthritis History of back surgery History of hip replacement Broken shoulder History of varicose vein ligation Congestive heart failure Grandfather Blood infection Grandmother Stroke Son Osteoarthritis History of back surgery History of varicose vein ligation Social History details: 2020, son lives locally, lived in [place] until 05/2022 Smoking Status: Never smoker Smoking Status: Never smoker Exam Narrative Exam Narrative: General: Cooperative, well-developed, not in acute distress HEENT: Normocephalic, atraumatic, PERRLA, normal sclera, eyelids normal Neck: Active full range of motion, atraumatic Chest: Normal to inspection, negative crepitus, no overlying erythema ecchymosis Respiratory: Normal respiratory effort, not in acute respiratory distress, clear to auscultation bilaterally negative cough, wheeze, tachypnea, rhonchi, rales Cardiology: Regular rate rhythm negative gallop, murmur, rubs GI/: No tenderness to palpation, soft, non rigid, normal to inspection, exam deferred MSK: Full active range of motion in all 4 extremities, atraumatic, no tenderness to palpation of any bony prominences Skin: No rashes or lesions noted Neuro: Alert awake oriented x3, moves all 4 extremities spontaneously, cranial nerves intact, able to answer all questions appropriately follows commands appropriately Psych: Cooperative, negative suicidal or homicidal ideations Initial Vital Signs Initial Vital Signs: Vital Signs Temperature 97.8 F 05/19/25 22:10 Pulse Rate 54 L 05/19/25 22:10 Respiratory Rate 17 05/19/25 22:10 Blood Pressure 141/89 H 05/19/25 22:10 Pulse Oximetry 98 05/19/25 22:10 Oxygen Delivery Method Room Air 05/19/25 22:10 Course Orders Ordered: ED Orders 05/19/25 22:13 XR ribs RT min 3V w CXR1V Stat EKG-12 Lead Stat Measure peak expiratory flow STAT RT Consult Eval and Treat STAT 05/19/25 23:02 Comprehensive Metabolic Panel Stat NT-proBNP (BNP-Adult 18+) Stat Troponin I Stat 05/19/25 23:25 Complete Blood Count AUTO DIFF Stat Lactate (Lactic Acid) Stat Prothrombin Time INR Stat 05/20/25 00:44 CT angio chest PE protocol Stat Discontinued Medications Famotidine (Famotidine 20 Mg/2 Ml Vial) 20 mg IV NOW ONE Stop: 05/20/25 00:45 Last Admin: 05/20/25 01:40 Dose: 20 mg Documented By: SHIRA Sodium Chloride (Normal Saline 0.9%) 250 mls @ 1,000 mls/hr IV BOLUS ONE Stop: 05/20/25 01:08 Last Infusion: 05/20/25 02:13 Dose: Infused Documented By: Admin: 05/20/25 01:43 Dose: 1,000 mls/hr Documented By: SHIRA Morphine Sulfate (Morphine 4 Mg/Ml Inj) 2 mg IV NOW ONE Stop: 05/20/25 00:55 Last Admin: 05/20/25 01:40 Dose: 2 mg Documented By: SHIRA Vital Signs Vital signs: Vital Signs - 8 hr 05/19/25 22:10 Temperature 97.8 F Pulse Rate 54 L Respiratory Rate 17 Blood Pressure 141/89 H Pulse Oximetry 98 Oxygen Delivery Method Room Air MDM - SOB/Dyspnea Lab Data 05/19/25 23:25 05/19/25 23:02 Labs: Lab Results 05/19/25 05/19/25 Range/Units 23:02 23:25 WBC 8.3 (4.5-11.0) X10^3/uL RBC 4.20 (4.0-5.2) X10^6/uL Hgb 11.7 L (12.0-16.0) g/dL Hct 35.5 L (36-46) % MCV 84.5 (80-100) fL MCH 27.9 (26-34) PG MCHC 33.0 (30-36) % RDW 14.5 (11.6-14.8) % Plt Count 151 (150-400) X10^3/uL Neut % (Auto) 74.5 (50-75) % Lymph % (Auto) 15.4 L (25-40) % [place] % (Auto) 7.7 (3-14) % Eos % (Auto) 1.8 L (2-4) % Baso % (Auto) 0.6 (0-2) % Neut # (Auto) 6200 (5824-4340) /uL Lymph # (Auto) 1300 (2506-1635) /uL [place] # (Auto) 600 (0-900) /uL Eos # (Auto) 100 (0-450) /uL Baso # (Auto) 0 (0-100) /uL PT 12.1 (9.4-12.5) SECONDS INR 1.1 (0.9-1.3) Sodium 137 (137-145) mmol/L Potassium 4.6 (3.4-5.1) mmol/L Chloride 103 (98-107) mmol/L Carbon Dioxide 27 (22-32) mmol/L BUN 26 H (7-17) mg/dL Creatinine 1.34 H (0.52-1.04) mg/dL Estimated GFR 38 L (>60) mL/min BUN/Creatinine Ratio 19.4 (6-22) Glucose 133 H (70-99) mg/dL Lactate 1.4 (0.7-2.1) mmol/L Calcium 9.9 (8.4-10.2) mg/dL Total Bilirubin 0.5 (0.2-1.3) mg/dL AST 71 H (14-36) IU/L ALT 25 (<35) IU/L Alkaline Phosphatase 144 H (38-126) U/L Troponin I < 0.012 (0.01-0.034) ng/mL NT-Pro-B Natriuret Pep 973 H (<450) pg/mL Total Protein 7.7 (6.3-8.2) g/dL Albumin 4.1 (3.5-5.0) g/dL Globulin 3.6 (1.7-4.1) g/dL Albumin/Globulin Ratio 1.1 (1.0-2.8) ECG Data Interpretation: EKG interpreted ED physician sinus bradycardia 57 beats per minute QTC 365, RI interval 244, QRS 84, no STEMI MDM Narrative Medical decision making narrative: Patient is a 89-year-old female with a past medical history of diabetes, CKD, hypothyroidism, hyperlipidemia, hypertension comes into the ED from home for evaluation of persistent shortness of breath ongoing persistent for the past week, states it is all started after having a fall on Thursday was seen by her primary care doctor had negative workup but presented due to persistent symptoms. EKG nonischemic in nature troponin negative, lab work otherwise unremarkable. Patient with x-ray without any fracture seen, patient had CTA of the chest no PE no pericardial pulmonary effusion, did note incidental pulmonary nodules this was instructed to the patient and told to follow up with primary care and pulmonology as needed. The rest of her lab work was unremarkable, no leukocytosis, troponin negative BNP negative, patient is not requiring any supplemental oxygen, patient was instructed to follow up with her primary care doctor in outpatient setting she verbalized understanding of this and agrees to being discharged home with outpatient follow up Discharge Plan Departure Patient Disposition: Home Clinical Impression: Dyspnea, Pulmonary nodule Instructions: DI for Shortness of Breath Activity Restrictions/Additional Instructions: Please follow up with your primary care doctor and pulmonology as needed in an outpatient setting Please read the discharge instructions sheet carefully and bring all papers to all doctor follow-up visits, as it may contain information that your doctor may want to see. Disease processes change and evolve, if your symptoms worsen or if you develop any new symptoms that are concerning to you please return for evaluation. Your evaluation today does not show any evidence of any life-threatening/serious illnesses requiring admission to the hospital or surgery. Please follow-up with your doctor for re-evaluation in approximately 1 day. Seek immediate medical attention for any worrisome symptoms. *If you do not have a primary care provider please contact the [facility] Resource line at [phone]. They will ask some questions about your medical history and help get you set up with a doctor in the community. Prescriptions: No Action amitriptyline 25 mg tablet 25 mg PO BEDTIME Qty: 30 0RF Rx Instructions: Start after completing one month of amitriptyline 50mg by mouth at bedtime. Take for one month then discontinue. escitalopram oxalate 5 mg tablet See Rx Instructions .ROUTE .COMPLEX Qty: 90 0RF Rx Instructions: Start once amitriptyline dose is at 25mg. Start with one tablet (5mg) by mouth daily for one month then increase to two tablets (10mg) by mouth daily thereafter amitriptyline 50 mg tablet 50 mg PO BEDTIME Qty: 30 3RF (DME) Disabled Parking permit See Rx Instructions .Route .MEDSUPPLY Qty: 1 0RF Rx Instructions: See accompanying application for disabled parking permit. tramadol 50 mg tablet 50 mg PO BID PRN (Reason: pain) Qty: 90 3RF levothyroxine 75 mcg capsule 75 mcg PO DAILY Qty: 90 3RF irbesartan 300 mg tablet 300 mg PO DAILY Qty: 90 3RF vitamin E [Vitamin E-400] 400 unit PO DAILY cholecalciferol (vitamin D3) 50 mcg (2,000 unit) capsule 50 mcg PO DAILY cyanocobalamin (vitamin B-12) 1 tab PO DAILY vit C-vit O-nvpjmj-idegcmic Capsule 1 cap PO DAILY mineral oil Oil 10 ml PO DAILY estradiol 0.05 mg/24 hr patch semiweekly 1 patch transdermal 2XW Qty: 24 3RF furosemide 20 mg tablet 40 mg PO DAILY Qty: 180 3RF metoprolol tartrate 100 mg tablet 100 mg PO BID Qty: 180 3RF rosuvastatin 10 mg tablet 10 mg PO DAILY Qty: 90 3RF melatonin 10 mg capsule 20 mg PO DAILY Referrals: Fred Benitez MD [Primary Care Provider, Internal Medicine] Stand Alone Forms: Patient Portal/API
--- NOTE | 2025-05-20 00:44 | DI.CT.S_ITS ---
PROCEDURE: CT ANGIO CHEST PE PROTOCOL INDICATIONS: SOB, right sided rib pain TECHNIQUE: After the administration of intravenous contrast, 2 mm thick sections acquired from the pulmonary apices to the posterior costophrenic angles. 3-dimensional maximum intensity projection (MIP) coronal and sagittal reformats were then acquired through the thorax. For radiation dose reduction, the following was used: automated exposure control, adjustment of mA and/or kV according to patient size. COMPARISON: [facility], CT, CT ANGIO CHEST PE PROTOCOL, 09/08/2024, 12:49. FINDINGS: Image quality: Diagnostic. Pulmonary arteries: Pulmonary arteries are normal in size, and demonstrate no intraluminal filling defects to suggest central pulmonary embolism. Lower Neck: No enlarged lymph nodes. Thyroid: No thyroid nodules which require sonographic follow up, per consensus guidelines. Axillae: No enlarged lymph nodes. Chest Wall: Unremarkable. Bones: Unremarkable. Lungs and Pleura: No pneumothorax or pleural effusions. Bibasilar atelectasis. Scattered solid pulmonary nodules, for example 4 mm left upper lobe nodule (6/126, MIP image 66). Heart: Heart size is enlarged. No pericardial effusion. Moderate coronary artery calcifications. Thoracic Vessels: No aortic aneurysm. Atherosclerotic calcifications. Mediastinum and [place]: No enlarged lymph nodes. Esophagus: No wall thickening. No hiatal hernia. Upper Abdomen: Visualized upper abdomen solid organs and bowel loops appear normal. IMPRESSION: No pulmonary embolus. Bibasilar atelectasis. Scattered sub 6 mm solid pulmonary nodules. If patient is high risk for lung malignancy, consider follow-up CT chest in 12 months to demonstrate stability per Fleischner society guidelines. Approved by: Nuvia Herr M.D.,Ph.D. on 05/20/2025 at 2:35
[2025-05-20] MEDS: MORPHINE 4 MG/ML INJ 2 MG IV (01:40)
[2025-05-20] MEDS: FAMOTIDINE 20 MG/2 ML VIAL IV (01:40)
[2025-05-20] MEDS: SODIUM CHLORIDE 0.9% 250 ML 1000 ML IV (01:43)
== END 2025-05-20 03:34 | disposition home or self-care (01) ==
PROVIDERS: Emergency Medicine; Emergency Provider Student in an Organized Health Care Education/Training Program; PCP Internal Medicine
DX: R06.00 Dyspnea, unspecified (principal); R91.8 Other nonspecific abnormal finding of lung field; M54.6 Pain in thoracic spine; R00.1 Bradycardia, unspecified; Z86.79 Personal history of other diseases of the circulatory system
CPT/HCPCS: 36415; 71101; 71275; 80053; 83605; 83880; 84484; 85025; 85610; 93005; 93010; 96374; 96375; 99284; J2272; J7030; Q9967

== ENCOUNTER 2025-05-21 11:20 | Emergency (ER) | payer MEDICARE, OTHER, SELFPAY ==
[2025-05-21] VITALS (12 sets, daily range): BP systolic 115–176; BP diastolic 66–82; PULSE 65–89; RESP 17–24; TEMP 36.9; O2SAT 95–98; BMI 31.1
--- NOTE | 2025-05-21 11:55 | DI.RAD.S_ITS ---
PROCEDURE: XR ABDOMEN MIN 2V INDICATIONS: abdominal pain/constipation TECHNIQUE: 2 views of the abdomen were acquired. COMPARISON: None. FINDINGS: Surgical changes and devices: None. Bowel: No pneumoperitoneum. The bowel gas pattern is normal. Soft tissues: No masses; visualized solid organ contours appear normal in size. No suspicious abdominal calcifications. Bones: No suspicious bony abnormalities. L4 decompressive laminectomy IMPRESSION: Non-obstructive bowel gas pattern. Approved by: Moustapha Roamno M.D. on 05/21/2025 at 11:50
--- NOTE | 2025-05-21 13:24 | DI.CT.S_ITS ---
PROCEDURE: CT ABDOMEN PELVIS W CON INDICATIONS: right sided pain TECHNIQUE: After the administration of intravenous contrast, axial sections acquired from the lung bases to the pubic symphysis. Coronal and sagittal reformats were performed. For radiation dose reduction, the following was used: automated exposure control, adjustment of mA and/or kV according to patient size. COMPARISON: [facility], CT, CT ANGIO CHEST PE PROTOCOL, 09/08/2024, 12:49. [facility], CT, CT ANGIO CHEST PE PROTOCOL, 05/20/2025, 0:46. FINDINGS: Lower Chest: No significant findings. ABDOMEN: Liver: Aggressive appearing heterogenous mass lesion in the right hepatic lobe measures 8.8 x 6 point 1 x 9.5 cm. Gallbladder: Cholelithiasis without acute cholecystitis. Biliary ducts: No biliary dilation. Pancreas: No ductal dilation. Spleen: Splenomegaly, 12.4 cm. Small calcified granulomas present. Adrenal Glands: No adrenal nodules. Kidneys and Ureters: No hydronephrosis. No solid mass. No complex renal cystic lesion which requires follow up. Stomach and Bowel: Normal colonic caliber, without significant wall thickening. Peritoneum: No abnormal intraperitoneal fluid. No free air. Ventral Wall: No significant ventral hernia. 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 PELVIS: Pelvic Organs: Hysterectomy. Bladder: No bladder wall thickening, accounting for underdistention. Pelvic Nodes: No enlarged lymph nodes. Miscellaneous: No inguinal hernias are seen. Bones: Degenerative disc disease and arthropathy noted in lower lumbar spine. 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 Hepatic lesion would be amendable to CT-guided percutaneous biopsy. Approved by: Moustapha Romano M.D. on 05/21/2025 at 14:34
--- NOTE | 2025-05-21 13:24 | ED.ABDPAIN ---
HPI - Abdominal Pain General Chief Complaint: Abdominal Pain Stated Complaint: feels like shes impacted px rt side Time Seen by Provider: 05/21/25 13:16 Source: patient and family Mode of arrival: Wheelchair History of Present Illness HPI narrative: Patient is an 89-year-old female history of type 2 diabetes, chronic kidney disease, hypothyroid, hyperlipidemia, hypertension, history of hepatitis-C presenting to day with right-sided abdominal pain. She feels like she is constipated she has not had a bowel movement in about 5 days. She was seen and evaluated here 2 days ago for some shortness of breath and right-sided rib pain. At that time she had blood work and a CT angio of the chest which did not show any abnormality. She continues to have this right-sided pain no nausea no vomiting. She denies any chest pain. Related Data Home Medications ?Medication ?Instructions ?Recorded ?Confirmed cholecalciferol (vitamin D3) 50 50 mcg PO DAILY 01/27/23 05/21/25 mcg (2,000 unit) capsule cyanocobalamin (vitamin B-12) 1 tab PO DAILY 01/27/23 05/21/25 mineral oil 10 ml PO DAILY 01/27/23 05/21/25 vit C-vit N-bjndzt-fyrdzwpt capsule 1 cap PO DAILY 01/27/23 05/21/25 vitamin E [Vitamin E-400] 400 unit PO DAILY 01/27/23 05/21/25 melatonin 10 mg capsule 20 mg PO DAILY 07/27/24 05/21/25 Previous Rx's ?Medication ?Instructions ?Recorded Disabled Parking permit #1 ea 05/18/24 tramadol 50 mg tablet 50 mg PO BID PRN pain #90 tabs 08/05/24 estradiol 0.05 mg/24 hr semiweekly 1 patch transdermal 2XW #24 ea 01/30/25 transdermal patch furosemide 20 mg tablet 40 mg (2 x 20 mg) PO DAILY #180 01/30/25 tabs metoprolol tartrate 100 mg tablet 100 mg PO BID #180 tabs 01/30/25 rosuvastatin 10 mg tablet 10 mg PO DAILY #90 tabs 01/30/25 levothyroxine 75 mcg capsule 75 mcg PO DAILY #90 caps 02/07/25 irbesartan 300 mg tablet 300 mg PO DAILY #90 tabs 03/29/25 amitriptyline 25 mg tablet 25 mg PO BEDTIME taper #30 tabs 05/18/25 amitriptyline 50 mg tablet 50 mg PO BEDTIME #30 tabs 05/18/25 escitalopram oxalate 5 mg tablet See Rx Instructions .Route 05/18/25 .COMPLEX #90 tabs hydrocodone 5 mg-acetaminophen 325 1 tab PO Q6H PRN pain #10 tabs 05/21/25 mg tablet Allergies Allergy/AdvReac Type Severity Reaction Status Date / Time No Known Drug Allergies Allergy Verified 05/21/25 11:47 Patient History Medical History DM type 2 with diabetic dyslipidemia Polyneuropathy, unspecified Menopausal syndrome Mild neurocognitive disorder Stage 3b chronic kidney disease (CKD) Do not resuscitate Venous (peripheral) insufficiency Depression, major, recurrent Obesity (BMI 30.0-34.9) Slow transit constipation Chronic low back pain Insomnia Generalized anxiety disorder GERD without esophagitis Obstructive sleep apnea Primary osteoarthritis involving multiple joints Acquired hypothyroidism Mixed hyperlipidemia Essential hypertension History of varicose veins Degenerative disc disease Granuloma annulare Psoriasis Sjogren's syndrome Restless leg syndrome (~1983) Osteopenia Fractures Fibromyalgia (~1964) Measles (~1940) Chicken pox Vertigo (~2015) Tinnitus (~2014) Hearing loss (~2014) Cataracts, bilateral (~1999) Painful menstrual periods (~1948) Ovarian cyst (~1964) Endometriosis (~1967) Back problem (~1959) Hepatitis C (~2017) Surgical History Fracture of distal end of tibia (~2021) S/P arthroscopic surgery of left knee (~2018) Fracture of left clavicle (~2016) History of eyelid surgery (~2007) History of cataract removal with insertion of prosthetic lens (~2006) Broken ankle (~1999) History of arthroscopic knee surgery History of ankle surgery (~1989) Spinal stenosis (~1984) History of laminectomy (~1975) History of hemorrhoidectomy (~1965) History of hysterectomy (~1964) History of removal of ovarian cyst (~1959) History of tonsillectomy (~1946) Anesthesia Family History Father Congestive heart failure Hypertension History of back surgery History of varicose vein ligation History of appendectomy History of hemorrhoidectomy History of cataract surgery Sleep apnea Heavy smoker Mother Cancer Hypertension History of fractured vertebra Arthritis Hodgkin's disease Brother Arthritis of back Heart transplant recipient Hypertension Coronary artery disease History of back surgery Heavy smoker Sister History of heart disease Hypertension Osteoarthritis History of back surgery History of hip replacement Broken shoulder History of varicose vein ligation Congestive heart failure Grandfather Blood infection Grandmother Stroke Son Osteoarthritis History of back surgery History of varicose vein ligation Social History details: 2020, son lives locally, lived in [place] until 05/2022 Smoking Status: Never smoker Smoking Status: Never smoker Exam Initial Vital Signs Initial Vital Signs: Vital Signs Temperature 98.5 F 05/21/25 11:47 Pulse Rate 66 05/21/25 11:47 Respiratory Rate 17 05/21/25 11:47 Blood Pressure 145/66 H 05/21/25 11:47 Pulse Oximetry 98 05/21/25 11:47 Oxygen Delivery Method Room Air 05/21/25 11:47 GENERAL: Alert pleasant 89-year-old female and in no acute distress. HEENT: Head atraumatic,EOMI, pupils reactive, face symmetric, moist mucous membranes CARDIOVASCULAR: Regular rate and rhythm without murmurs, rubs or gallops. RESPIRATORY: Breath sounds equal bilaterally, no wheezes rales or rhonchi. ABDOMEN: Soft, tender right upper quadrant positive Matias's EXTREMITIES: Normal range of motion, no clubbing or edema. Neurovascularly intact NEUROLOGICAL: Alert and oriented x4.Normal gait and speech. Cranial nerves II through XII grossly intact. SKIN: Warm, dry, no laceration, no petechiae, no rashes or lesions. Course Orders Ordered: Discontinued Medications Magnesium Citrate (Magnesium Citrate 300 Ml Solution) 300 ml PO NOW ONE Stop: 05/21/25 16:20 Last Admin: 05/21/25 16:28 Dose: 300 ml Documented By: MARVA Vital Signs Vital signs: Vital Signs - 8 hr 05/21/25 11:47 05/21/25 13:11 05/21/25 13:12 Temperature 98.5 F Pulse Rate 66 Respiratory Rate 17 Blood Pressure 145/66 H 176/70 H Pulse Oximetry 98 96 Oxygen Delivery Method Room Air 05/21/25 13:12 05/21/25 13:35 05/21/25 14:00 Temperature Pulse Rate 71 65 75 Respiratory Rate Blood Pressure Pulse Oximetry 98 95 97 Oxygen Delivery Method 05/21/25 14:30 05/21/25 14:40 05/21/25 14:40 Temperature Pulse Rate 74 76 Respiratory Rate 20 Blood Pressure 173/82 H Pulse Oximetry 97 97 Oxygen Delivery Method 05/21/25 15:00 05/21/25 15:30 Temperature Pulse Rate 85 84 Respiratory Rate 23 24 Blood Pressure Pulse Oximetry 97 95 Oxygen Delivery Method MDM - Abdominal Pain Lab Data 05/21/25 14:15 05/21/25 14:15 Labs: Lab Results 05/21/25 05/21/25 Range/Units 14:15 15:55 WBC 10.6 (4.5-11.0) X10^3/uL RBC 4.10 (4.0-5.2) X10^6/uL Hgb 11.5 L (12.0-16.0) g/dL Hct 34.6 L (36-46) % MCV 84.5 (80-100) fL MCH 28.2 (26-34) PG MCHC 33.3 (30-36) % RDW 14.8 (11.6-14.8) % Plt Count 162 (150-400) X10^3/uL Neut % (Auto) 75.1 H (50-75) % Lymph % (Auto) 12.1 L (25-40) % Millard % (Auto) 11.9 (3-14) % Eos % (Auto) 0.4 L (2-4) % Baso % (Auto) 0.5 (0-2) % Neut # (Auto) 7900 H (0695-8290) /uL Lymph # (Auto) 1300 (0894-0214) /uL Millard # (Auto) 1300 H (0-900) /uL Eos # (Auto) 0 (0-450) /uL Baso # (Auto) 100 (0-100) /uL Sodium 136 L (137-145) mmol/L Potassium 4.8 (3.4-5.1) mmol/L Chloride 103 (98-107) mmol/L Carbon Dioxide 27 (22-32) mmol/L BUN 26 H (7-17) mg/dL Creatinine 1.33 H (0.52-1.04) mg/dL Estimated GFR 38 L (>60) mL/min BUN/Creatinine Ratio 19.5 (6-22) Glucose 153 H (70-99) mg/dL Lactate 1.1 (0.7-2.1) mmol/L Calcium 9.8 (8.4-10.2) mg/dL Total Bilirubin 0.7 (0.2-1.3) mg/dL AST 167 H (14-36) IU/L ALT 24 (<35) IU/L Alkaline Phosphatase 139 H (38-126) U/L Total Creatine Kinase 72 (30-135) U/L Troponin I < 0.012 (0.01-0.034) ng/mL Total Protein 7.7 (6.3-8.2) g/dL Albumin 4.1 (3.5-5.0) g/dL Globulin 3.6 (1.7-4.1) g/dL Albumin/Globulin Ratio 1.1 (1.0-2.8) Lipase 159 (23-300) U/L Carcinoembryonic Ag 4.7 H (0.1-3.0) ng/mL CA 125 Antigen 32.1 (0-35) U/mL Urine RBC None seen (0-5/HPF) Urine WBC 10-30/hpf H (0-5/HPF) Ur Squamous Epith Cells None seen (0-5/HPF) Urine Bacteria Many (>30) H (None) Urine Mucus 1+ H (Negative) Ur Culture Indicated? Specimen cultured Vol Urine Centrifuged 10ml (spun) Point of care testing: Urine Dip Bedside Urine Glucose Negative Bedside Urine Bilirubin - Negative Bedside Urine Ketone - Negative Urine Specific [place] 1.010 Bedside Urine Occult Blood +/- Bedside Urine pH 6.0 Bedside Urine Protein +/- 15 Bedside Urine Urobilinogen - Negative Bedside Urine Nitrite + Positive Bedside Urine Leukocytes ++ [address] scan - abdomen/pelvis: Radiologist's Impression: PROCEDURE: CT ANGIO CHEST PE PROTOCOL INDICATIONS: SOB, right sided rib pain TECHNIQUE: After the administration of intravenous contrast, 2 mm thick sections acquired from the pulmonary apices to the posterior costophrenic angles. 3-dimensional maximum intensity projection (MIP) coronal and sagittal reformats were then acquired through the thorax. For radiation dose reduction, the following was used: automated exposure control, adjustment of mA and/or kV according to patient size. COMPARISON: [facility], CT, CT ANGIO CHEST PE PROTOCOL, 09/08/2024, 12:49. FINDINGS: Image quality: Diagnostic. Pulmonary arteries: Pulmonary arteries are normal in size, and demonstrate no intraluminal filling defects to suggest central pulmonary embolism. Lower Neck: No enlarged lymph nodes. Thyroid: No thyroid nodules which require sonographic follow up, per consensus guidelines. Axillae: No enlarged lymph nodes. Chest Wall: Unremarkable. Bones: Unremarkable. Lungs and Pleura: No pneumothorax or pleural effusions. Bibasilar atelectasis. Scattered solid pulmonary nodules, for example 4 mm left upper lobe nodule (6/126, MIP image 66). Heart: Heart size is enlarged. No pericardial effusion. Moderate coronary artery calcifications. Thoracic Vessels: No aortic aneurysm. Atherosclerotic calcifications. Mediastinum and [place]: No enlarged lymph nodes. Esophagus: No wall thickening. No hiatal hernia. Upper Abdomen: Visualized upper abdomen solid organs and bowel loops appear normal. IMPRESSION: No pulmonary embolus. Bibasilar atelectasis. Scattered sub 6 mm solid pulmonary nodules. If patient is high risk for lung malignancy, consider follow-up CT chest in 12 months to demonstrate stability per Fleischner society guidelines. Approved by: Nuvia Herr M.D.,Ph.D. on 05/20/2025 at 2:35 ECG Data Attestation: I personally reviewed and interpreted this ECG as follows: Prior ECG tracings: available for review Interpretation: Normal sinus rhythm rate 76 TN interval 234 QRS [address] changes no T-wave inversions MDM Narrative Medical decision making narrative: MDM CC: Right-sided abdominal pain Complicating co-morbidities: Type 2 diabetes chronic kidney disease hypertension hyperlipidemia Data collected from: Son Medical records reviewed: Recent ED visit, primary care Differential considered: Cholelithiasis cholecystitis bowel obstruction constipation, ischemic bowel Exam documented above, pertinent findings include: Alert pleasant 89-year-old female she is quite tender in her right upper quadrant no masses no jaundice abdomen is otherwise Lab Test results independently reviewed as above. Pertinent findings: CBC no leukocytosis or anemia Electrolytes within normal limits creatinine baseline at 1.3 Lactate 1.1 Bilirubin liver enzymes within normal limits lipase within normal limits Troponin negative CEA pending Alpha fetoprotein pending CA 19 9 CA 125 pain Independently reviewed EKG as above Sinus rhythm without ischemia Imaging studies independently reviewed: Abdominal x-ray no obstruction or constipation CT abdomen pelvis shows aggressive appearing mass 8.8 x 6.1 x 9.5 cm without obstruction cholelithiasis without cholecystitis Consultations: [ ] Treatments: Magnesium citrate Re-evaluations: [ ] Discussion: Patient 89-year-old female presenting today with ongoing right-sided abdominal pain. She feels like she is constipated however, no evidence of constipation or bowel obstruction on CT. She is unfortunately found to have a large hepatic mass. She does have a remote history of hepatitis C but she says she was treated for that a couple of years ago. Blood work is overall reassuring she has no evidence of obstruction she has a normal bilirubin liver enzymes and lipase are within normal limits. She is slightly uncomfortable with like some pain medications to go home with. She has not a primary care appointment coming up in 3 days. Cancer markers have been added to her blood work. She still would like something for her constipation she is only taking Dulcolax without any kind of relief. Discharge Plan Departure Patient Disposition: Home Clinical Impression: Liver mass Instructions: Constipation Activity Restrictions/Additional Instructions: *You have been diagnosed with liver mass *What to do: At this time you will likely need further evaluation including biopsy and oncology evaluation. I will call to talk to your primary care doctor tomorrow. *Continue to take medications as directed Eden 1 tablet every 4-6 hours if needed for severe pain--this does cause constipation Magnesium citrate, take half a bottle when you go home in the other half before bed May also try MiraLax once daily *Follow up with your primary care provider in 2-3 days or call [phone] Benitez, see him as scheduled this week *Return to ER if you should have increasing pain nausea vomiting weak or any new, worsening or concerning symptoms CONTROLLED SUBSTANCE DISCHARGE (Narcotoic/benzodiazepine/Flexeril/Phenergan) 1. You have been prescribed narcotic medications, it does have acetaminophen/Tylenol/paracetamol in it, DO NOT TAKE MORE THAN 4,00mg in 24 hours of Tylenol. TRAMADOL DOES NOT CONTAIN TYLENOL 2. Please understand that we cannot provide further refills of narcotics, benzodiazepines or controlled substances through the ED and her pain management will need to be through your provider. 3. While on these medications you cannot drive or operate heavy machinery. 4. You cannot sign legal documents or perform any duties such as this. 5. As long as you're taking opiate pain medications he should also be taking a stool softener such as Colace, Dulcolax, MiraLAX or prune juice, to help avoid constipation. Prescriptions: New hydrocodone-acetaminophen 5-325 mg tablet 1 tab PO Q6H PRN (Reason: pain) Qty: 10 0RF No Action amitriptyline 25 mg tablet 25 mg PO BEDTIME Qty: 30 0RF Rx Instructions: Start after completing one month of amitriptyline 50mg by mouth at bedtime. Take for one month then discontinue. escitalopram oxalate 5 mg tablet See Rx Instructions .ROUTE .COMPLEX Qty: 90 0RF Rx Instructions: Start once amitriptyline dose is at 25mg. Start with one tablet (5mg) by mouth daily for one month then increase to two tablets (10mg) by mouth daily thereafter amitriptyline 50 mg tablet 50 mg PO BEDTIME Qty: 30 3RF (DME) Disabled Parking permit See Rx Instructions .Route .MEDSUPPLY Qty: 1 0RF Rx Instructions: See accompanying application for disabled parking permit. tramadol 50 mg tablet 50 mg PO BID PRN (Reason: pain) Qty: 90 3RF levothyroxine 75 mcg capsule 75 mcg PO DAILY Qty: 90 3RF irbesartan 300 mg tablet 300 mg PO DAILY Qty: 90 3RF vitamin E [Vitamin E-400] 400 unit PO DAILY cholecalciferol (vitamin D3) 50 mcg (2,000 unit) capsule 50 mcg PO DAILY cyanocobalamin (vitamin B-12) 1 tab PO DAILY vit C-vit F-tqdtyy-hdzkuznu Capsule 1 cap PO DAILY mineral oil Oil 10 ml PO DAILY estradiol 0.05 mg/24 hr patch semiweekly 1 patch transdermal 2XW Qty: 24 3RF furosemide 20 mg tablet 40 mg PO DAILY Qty: 180 3RF metoprolol tartrate 100 mg tablet 100 mg PO BID Qty: 180 3RF rosuvastatin 10 mg tablet 10 mg PO DAILY Qty: 90 3RF melatonin 10 mg capsule 20 mg PO DAILY Referrals: Fred Benitez MD [Primary Care Provider, Internal Medicine] Stand Alone Forms: Patient Portal/API
--- NOTE | 2025-05-21 14:06 | EKG_ITS ---
[facility] [address] [place] [address] Test Date: 2025-05-21 Pat Name: Vivi Holloway Department: [facility] Room: Gender: Female [employer] Agent: LALO : 1935 Requested By: Order Number: [id number] [place] MD: Timbo Fulton Measurements Intervals [place] Rate: 76 P: 62 ME: 234 QRS: 39 QRSD: 84 T: 56 QT: 352 QTc: 396 Interpretive Statements Sinus rhythm with 1st degree AV block Electronically Signed On 05-22-2025 7:51:14 PST by Timbo Fulton
[2025-05-21 14:34] LABS: Add Manual Diff / Slide Review NO; Hematocrit 34.6 % (36-46); Hemoglobin 11.5 g/dL (12.0-16.0); Lymphocytes Absolute Auto 1300 /uL (1100-4500); Mean Corpuscular HGB Conc 33.3 % (30-36); Mean Corpuscular Hemoglobin 28.2 PG (26-34); Mean Corpuscular Volume 84.5 fL (80-100); Platelet Count 162 X10^3/uL (150-400)
[2025-05-21 14:44] LABS: Alanine Aminotransferase 24 IU/L (<35); Albumin 4.1 g/dL (3.5-5.0); Albumin Globulin Ratio 1.1 (1.0-2.8); Alkaline Phosphatase 139 U/L (38-126); Blood Urea Nitrogen 26 mg/dL (7-17); Calcium 9.8 mg/dL (8.4-10.2); Carbon Dioxide 27 mmol/L (22-32); Chloride 103 mmol/L (98-107); Creatine Kinase 72 U/L (30-135); Estimated Glomerular Filt Rate 38 mL/min (>60); Globulin 3.6 g/dL (1.7-4.1); Glucose 153 mg/dL (70-99); HEMOLYSIS < 15 (0-50); Lipase 159 U/L (23-300); Potassium 4.8 mmol/L (3.4-5.1); Sodium 136 mmol/L (137-145); Total Protein 7.7 g/dL (6.3-8.2)
[2025-05-21 14:45] LABS: Lactate (Lactic Acid) 1.1 mmol/L (0.7-2.1)
[2025-05-21 14:56] LABS: Troponin I < 0.012 ng/mL (0.01-0.034)
[2025-05-21 16:19] LABS: Culture Indicated Urine Specimen Cultured
[2025-05-21] MEDS: MAGNESIUM CITRATE 300 ML SOLUTION PO (16:28)
[2025-05-21 16:50] LABS: Carcinoembryonic Antigen 4.7 ng/mL (0.1-3.0)
[2025-05-23 06:43] LABS: Cancer (Carbohydrate) Ag 19-9 47 U/mL (0-35)
== END 2025-05-21 16:43 | disposition home or self-care (01) ==
PROVIDERS: Emergency Provider Emergency Medicine; PCP Internal Medicine
DX: R16.0 Hepatomegaly, not elsewhere classified (principal); Z86.19 Personal history of other infectious and parasitic diseases
CPT/HCPCS: 74019; 74177; 80053; 81003; 81015; 82105; 82378; 82550; 83605; 83690; 84484; 85025; 86301; 86304; 87077; 87086; 87186; 93005; 99283; 99284; Q9967

== ENCOUNTER 2025-05-30 03:53 | Emergency (ER) | payer MEDICARE, OTHER, SELFPAY ==
[2025-05-30] VITALS (10 sets, daily range): BP systolic 172–175; BP diastolic 72–77; PULSE 88–103; RESP 16–20; TEMP 36.6–36.9; O2SAT 91–96; BMI 32.5
--- NOTE | 2025-05-30 03:59 | DI.RAD.S_ITS ---
PROCEDURE: XR RIBS LT MIN 3V W CXR1V INDICATIONS: fall pain TECHNIQUE: 2 views of the ribs were acquired, along with a single view chest. COMPARISON: None. FINDINGS: Surgical changes and devices: None. Bones and chest wall: No fractures or dislocations. No suspicious bony lesions. Overlying soft tissues appear unremarkable. Lungs and pleura: No pleural effusions or pneumothorax. Lungs appear clear. Mediastinum: Mediastinal contours appear normal. Heart size is normal. IMPRESSION: No displaced rib fracture or pneumothorax. Dictated by: Alfred Musa M.D. on 05/30/2025 at 7:44 Approved by: Alfred Musa M.D. on 05/30/2025 at 7:44
[2025-05-30] MEDS: IBUPROFEN 400 MG TABLET PO (04:05)
--- NOTE | 2025-05-30 04:07 | ED.BACK ---
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 She reports that she fell against a counter 2 days ago. She lives at an assisted living she was doing well today however tonight reports increased pain. She was previously given [place] for pain she was unable to get to her pain medications. She denies dizziness or lightheadedness. Really grabbing the left side of her ribs. According to notes it looks like hospice consultation is being set up but she is not currently enrolled in hospice Related Data Home Medications ?Medication ?Instructions ?Recorded ?Confirmed cholecalciferol (vitamin D3) 50 50 mcg PO DAILY 01/27/23 05/23/25 mcg (2,000 unit) capsule cyanocobalamin (vitamin B-12) 1 tab PO DAILY 01/27/23 05/23/25 mineral oil 10 ml PO DAILY 01/27/23 05/23/25 vit C-vit [id number]-[id number] capsule 1 cap PO DAILY 01/27/23 05/23/25 vitamin E [Vitamin E-400] 400 unit PO DAILY 01/27/23 05/23/25 melatonin 10 mg capsule 20 mg PO DAILY 07/27/24 05/23/25 Previous Rx's ?Medication ?Instructions ?Recorded Disabled Parking permit #1 ea 05/18/24 tramadol 50 mg tablet 50 mg PO BID PRN pain #90 tabs 08/05/24 estradiol 0.05 mg/24 hr semiweekly 1 patch transdermal 2XW #24 ea 01/30/25 transdermal patch furosemide 20 mg tablet 40 mg (2 x 20 mg) PO DAILY #180 01/30/25 tabs metoprolol tartrate 100 mg tablet 100 mg PO BID #180 tabs 01/30/25 rosuvastatin 10 mg tablet 10 mg PO DAILY #90 tabs 01/30/25 levothyroxine 75 mcg capsule 75 mcg PO DAILY #90 caps 02/07/25 irbesartan 300 mg tablet 300 mg PO DAILY #90 tabs 03/29/25 linaclotide 72 mcg capsule 72 mcg PO DAILY #90 caps 05/23/25 (Linzess) lorazepam 0.5 mg tablet 0.5 mg PO TID PRN breathing #60 05/23/25 tabs nitrofurantoin 100 mg PO BID #10 caps 05/23/25 monohydrate/macrocrystals 100 mg capsule (Macrobid) amitriptyline 75 mg tablet 75 mg PO BEDTIME #30 tabs 05/29/25 hydrocodone 5 mg-acetaminophen 325 1 tab PO Q6H PRN pain #30 tabs 05/29/25 mg tablet Allergies Allergy/AdvReac Type Severity Reaction Status Date / Time No Known Drug Allergies Allergy Verified 05/23/25 12:00 Patient History Medical History (Updated 05/30/25 @ 05:14 by Jenny Lal DO) History of hepatitis C virus infection Hepatocellular carcinoma DM type 2 with diabetic dyslipidemia Polyneuropathy, unspecified Menopausal syndrome Mild neurocognitive disorder Stage 3b chronic kidney disease (CKD) Do not resuscitate Venous (peripheral) insufficiency Depression, major, recurrent Obesity (BMI 30.0-34.9) Slow transit constipation Chronic low back pain Insomnia Generalized anxiety disorder GERD without esophagitis Obstructive sleep apnea Primary osteoarthritis involving multiple joints Acquired hypothyroidism Mixed hyperlipidemia Essential hypertension History of varicose veins Degenerative disc disease Granuloma annulare Psoriasis Sjogren's syndrome Restless leg syndrome (~1983) Osteopenia Fractures Fibromyalgia (~1964) Measles (~1940) Chicken pox Vertigo (~2015) Tinnitus (~2014) Hearing loss (~2014) Cataracts, bilateral (~1999) Painful menstrual periods (~1948) Ovarian cyst (~1964) Endometriosis (~1967) Back problem (~1959) Hepatitis C (~2017) Surgical History Fracture of distal end of tibia (~2021) S/P arthroscopic surgery of left knee (~2018) Fracture of left clavicle (~2016) History of eyelid surgery (~2007) History of cataract removal with insertion of prosthetic lens (~2006) Broken ankle (~1999) History of arthroscopic knee surgery History of ankle surgery (~1989) Spinal stenosis (~1984) History of laminectomy (~1975) History of hemorrhoidectomy (~1965) History of hysterectomy (~1964) History of removal of ovarian cyst (~1959) History of tonsillectomy (~1946) Anesthesia Family History Father Congestive heart failure Hypertension History of back surgery History of varicose vein ligation History of appendectomy History of hemorrhoidectomy History of cataract surgery Sleep apnea Heavy smoker Mother Cancer Hypertension History of fractured vertebra Arthritis Hodgkin's disease Brother Arthritis of back Heart transplant recipient Hypertension Coronary artery disease History of back surgery Heavy smoker Sister History of heart disease Hypertension Osteoarthritis History of back surgery History of hip replacement Broken shoulder History of varicose vein ligation Congestive heart failure Grandfather Blood infection Grandmother Stroke Son Osteoarthritis History of back surgery History of varicose vein ligation Social History details: 2020, son lives locally, lived in [place] until 05/2022 Smoking Status: Never smoker Exam Initial Vital Signs Initial Vital Signs: Vital Signs Temperature 97.8 F 05/30/25 04:00 Pulse Rate 103 H 05/30/25 04:00 Respiratory Rate 20 05/30/25 04:00 Blood Pressure 175/77 H 05/30/25 04:00 Pulse Oximetry 94 05/30/25 04:00 Oxygen Delivery Method Room Air 05/30/25 04:00 GENERAL: Alert pleasant 89-year-old female and in no acute distress. HEENT: Head atraumatic,EOMI, pupils reactive, face symmetric, moist mucous membranes CARDIOVASCULAR: Regular rate and rhythm without murmurs, rubs or gallops. RESPIRATORY: Breath sounds equal bilaterally, no wheezes rales or rhonchi. Left upper rib pain tender to palpation ABDOMEN: Soft, nontender. Normoactive bowel sounds all 4 quadrants. No guarding or rebound. EXTREMITIES: Normal range of motion, no clubbing or edema. Neurovascularly intact NEUROLOGICAL: Alert and oriented x4.Normal gait and speech. Cranial nerves II through XII grossly intact. Able to stand and walk SKIN: Warm, dry, no laceration, no petechiae, no rashes or lesions. Course Orders Ordered: ED Orders 05/30/25 03:59 XR ribs LT min 3V w CXR1V Stat Discontinued Medications Ibuprofen (Ibuprofen 400 Mg Tablet) 400 mg PO NOW ONE Stop: 05/30/25 04:00 Last Admin: 05/30/25 04:05 Dose: 400 mg Oxycodone HCl (Oxycodone Ir 5 Mg Tablet) 5 mg PO NOW ONE Stop: 05/30/25 04:00 Last Admin: 05/30/25 04:05 Dose: 5 mg Vital Signs Vital signs: Vital Signs - 8 hr 05/30/25 04:00 Temperature 97.8 F Pulse Rate 103 H Respiratory Rate 20 Blood Pressure 175/77 H Pulse Oximetry 94 Oxygen Delivery Method Room Air MDM - Back Pain/Injury MDM Narrative Medical decision making narrative: Patient 89-year-old female with newly diagnosed hepatocellular carcinoma presenting 2 days after ground level fall. Really complaining of some left rib pain hurts to breathe hurts to move splinting with movement. X-ray is negative for fracture and pneumothorax. She is given oxycodone here in the ED overall better. Son here to pick her up. Discharge Plan Departure Patient Disposition: Home Clinical Impression: Contusion of rib on left side Instructions: DI for Rib Contusion Activity Restrictions/Additional Instructions: *You have been diagnosed with left rib contusion *What to do: At this time increase activity as tolerated. May need to splint with a pillow. No evidence of broken bone *Continue to take medications as directed Take pain medication as prescribed *Follow up with your primary care provider in 2-3 days or call [phone] *Return to ER if you should have increasing pain shortness of breath weakness fall confusion [or] any new, worsening or concerning symptoms Prescriptions: No Action amitriptyline 75 mg tablet 75 mg PO BEDTIME Qty: 30 3RF (DME) Disabled Parking permit See Rx Instructions .Route .MEDSUPPLY Qty: 1 0RF Rx Instructions: See accompanying application for disabled parking permit. tramadol 50 mg tablet 50 mg PO BID PRN (Reason: pain) Qty: 90 3RF levothyroxine 75 mcg capsule 75 mcg PO DAILY Qty: 90 3RF irbesartan 300 mg tablet 300 mg PO DAILY Qty: 90 3RF Linzess 72 mcg capsule 72 mcg PO DAILY Qty: 90 3RF hydrocodone-acetaminophen 5-325 mg tablet 1 tab PO Q6H PRN (Reason: pain) Qty: 30 0RF vitamin E [Vitamin E-400] 400 unit PO DAILY cholecalciferol (vitamin D3) 50 mcg (2,000 unit) capsule 50 mcg PO DAILY cyanocobalamin (vitamin B-12) 1 tab PO DAILY vit C-vit H-iglnzu-zboorlvm Capsule 1 cap PO DAILY mineral oil Oil 10 ml PO DAILY estradiol 0.05 mg/24 hr patch semiweekly 1 patch transdermal 2XW Qty: 24 3RF furosemide 20 mg tablet 40 mg PO DAILY Qty: 180 3RF metoprolol tartrate 100 mg tablet 100 mg PO BID Qty: 180 3RF rosuvastatin 10 mg tablet 10 mg PO DAILY Qty: 90 3RF lorazepam 0.5 mg tablet 0.5 mg PO TID PRN (Reason: breathing) Qty: 60 0RF melatonin 10 mg capsule 20 mg PO DAILY nitrofurantoin monohyd/m-cryst [Macrobid] 100 mg capsule 100 mg PO BID Qty: 10 0RF Rx Instructions: must administer with a meal/food Referrals: Fred Benitez MD [Primary Care Provider, Internal Medicine] Stand Alone Forms: Patient Portal/API
== END 2025-05-30 07:16 | disposition home or self-care (01) ==
PROVIDERS: Emergency Provider Emergency Medicine; PCP Internal Medicine
DX: S20.212A Contusion of left front wall of thorax, initial encounter (principal); W18.30XA Fall on same level, unspecified, initial encounter
CPT/HCPCS: 71101; 99283